=== PATIENT | male | born 1990 | race Two or more races ===

== ENCOUNTER 2023-04-12 19:01 | Emergency (ER) | payer MEDICAID, OTHER ==
[~2023-04-12] VITALS: Ht 175.3 cm; Wt 122.3 kg
[2023-04-12 19:20] VITALS: BP 169/91; PULSE 123; RESP 18; TEMP 98.9; O2SAT 99
[2023-04-12] MEDS ORDERED: TETANUS-DIPTH-ACEL PERTUSSIS 0.5ML SYR Tdap IM ONE (21:00)
== END 2023-04-12 21:38 | disposition home or self-care (01) ==
LOC: ER 19:01
DX: S61.012A Laceration without foreign body of left thumb without damage to nail, initial encounter (principal); W26.8XXA Contact with other sharp object(s), not elsewhere classified, initial encounter; Y93.89 Activity, other specified; Y92.89 Other specified places as the place of occurrence of the external cause; Y99.8 Other external cause status
CPT/HCPCS: 12002; 90471; 90715

== ENCOUNTER 2023-04-19 10:26 | Emergency (ER) | payer MEDICAID ==
[~2023-04-19] VITALS: Ht 175.3 cm; Wt 120.3 kg
[2023-04-19 11:00] VITALS: BP 151/97; PULSE 120; RESP 17; TEMP 100.9; O2SAT 96
== END 2023-04-19 11:16 | disposition home or self-care (01) ==
LOC: ER 10:26
DX: S61.012D Laceration without foreign body of left thumb without damage to nail, subsequent encounter (principal); X58.XXXD Exposure to other specified factors, subsequent encounter